=== PATIENT | male | born 2005 | race Caucasian/White ===

== ENCOUNTER 2025-03-06 02:33 | Emergency (ER) | payer SELFPAY ==
[~2025-03-06] VITALS: Ht 182.9 cm; Wt 83.1 kg
[~2025-03-06 02:33] MED LIST: CHILDREN'S100 MG/52 PO; IBUPROFEN400 MG PO; K-TAB ER20 MEQ PO
[2025-03-06] MEDS ORDERED: FAMOTIDINE 20 MG/ 2 ML VIAL IV ONE (03:00)
[2025-03-06 03:21] LABS: BASOPHILS 1.0 % (0.2-1.2); EOSINOPHILS 2.9 % (0.8-7.0); LYMPHOCYTES 41.2 % (21.8-53.1); MCH 29.3 PG (25.7-32.2); MCHC 35.0 g/dL (32.3-36.5); MCV 83.8 fL (79.0-92.2); MONOCYTES 7.2 % (5.3-12.2); NEUTROPHILS 47.6 % (34.0-67.9); RBC 5.36 M/uL (4.63-6.08)
[2025-03-06] MEDS ORDERED: ACETAMINOPHEN 500 MG TAB PO ONE (03:30)
[2025-03-06 03:36] LABS: CORONAVIRUS COVID-19 AG NEGATIVE (NEGATIVE)
[2025-03-06 03:39] LABS: ALT (SGPT) 25 U/L (14-59); AST (SGOT) 23 U/L (15-37); GLOMERULAR FILTRATION RATE,EST 97 mL/min (>60); PROTEIN, TOTAL 7.3 g/dL (6.4-8.2); UREA NITROGEN 18 mg/dL (7-18)
[2025-03-06 04:07] VITALS: BP 150/99
== END 2025-03-06 04:08 | disposition home or self-care (01) ==
LOC: ED 02:33
PROVIDERS: Internal Medicine
DX: B34.9 Viral infection, unspecified (principal); R51.9 Headache, unspecified
CPT/HCPCS: 36415; 70450; 80053; 82550; 84484; 85025; 96374; 96375; 99284-25; A9270; J2405